=== PATIENT | female | born 1950 | race Caucasian/White ===

== ENCOUNTER → 2017-12-29 | Outpatient (CLI) | payer OTHER ==
[~2017-12-29] MED LIST: ACETAMINOPHEN650 M5 PO; ARTIFICIAL TEAR15 M3 OPHTHALMIC; ASPIR-LOW81 MG PO; ASPIRIN EC81 M1 PO; BISOPROLOL FUMA10 MG PO; BLACK COHOSH PO; BLACK COHOSH40 MG PO; CALCIUM 500 +1 EAC5 PO; CALCIUM 600 +1 EAC9 PO; CARDIZEM CD240 MG PO; CARDIZEM CD360 MG PO; CARDIZEM120 MG PO; ELIQUIS5 MG PO; IRON18 M1 PO; IRON325 PO; MELOXICAM15 MG PO; MUCINEX600 MG PO; NORCO 5-325 TA1 EACH PO; OMEPRAZOLE 20 M20 M1 PO; POTASSIUM20 PO; PRADAXA150 MG PO; RYTHMOL 150MG150 M1 PO; SERTRALINE HCL100 MG PO; TRIAMTERENE/HCT1 CA1 PO; TYLENOL325 MG PO; VITAMIN C + RO500 MG PO; VITAMIN C500 M1 PO; VITAMIN D2000 UNIT PO; ZINC CHELATE50 MG PO; ZINC50 M1 PO; [UNRECOGNIZED DRUG - OTHER] PO
--- NOTE | ~2017-12-29 | SLE ---
[facility] [place] [address] POLYSOMNOGRAPHY STUDY Name: GIDEON CARRIZALES Dhruv Room #: [facility]#: [id number] Admission: 12/29/17 Attend Phys: Jamie Zurita MD Discharge: Date of : 54 Report #: [id number] THIS REPORT FOR: //name// CC: Jamie Jenkins DATE OF SERVICE: 12/29/2017 ATTENDING PHYSICIAN: Dr. Henok Jenkins. The patient is 67 years old who weighs 169 pounds and is 70 inches tall with a BMI of 24.2. The patient has a history of moderate ALEXA, based on previous sleep study with an AHI of 19 per hour. The patient was initially placed on auto CPAP at a pressure of 7-10 which later was increased to 7-20. The patient had an outpatient nocturnal oximetry study while on auto CPAP and was found to have nocturnal hypoxia. As a result, another CPAP titration study was requested by primary care physician to assess the need for oxygen while sleeping on therapeutic CPAP. During the night of study, the patient spent 491 minutes in bed and slept for 399 minutes with a sleep efficiency of 81%. Sleep latency was 32.5 minutes with a REM latency of 311 minutes. Overall, sleep architecture showed increased stage I and stage 2 sleep, absent N3 sleep and reduced REM sleep which was 14.9% of the total sleep time. During the night of study, the patient's EKG monitoring revealed an average heart rate of 60 beats per minute with a maximum of 73 beats per minute. It was regular rhythm consistent with a sinus rhythm. No sustained arrhythmias were observed. PLMS were seen at an index of 9 per hour and 4 per hour caused EEG arousals. The patient was started on CPAP at a pressure of 7 cm water and titrated up to a maximum of 16 cm of water. At lower pressures, the patient's AHI was less than 5 per hour, however, REM and supine sleep together was not seen. At the final pressure of 16 cm water, the patient slept for 6.2 minutes. Supine sleep was observed with a brief REM sleep for 2.7 minutes were seen. The patient's AHI was reduced to 0 per hour and oxygen saturation remained above 96%. Due to limited sleep time at the final pressure, it is difficult to assess the efficacy of this pressure and I would recommend that the patient should be placed on an auto-CPAP at a minimum pressure of 10 cm water and a maximum pressure of 20 cm water. IMPRESSION: [facility] [address] [place] [address] POLYSOMNOGRAPHY STUDY Name: GIDEON CARRIZALES Room #: [facility]#: [id number] Admission: 12/29/17 Attend Phys: Jamie Zurita MD Discharge: Date of : 54 Report #: [id number] 1. Sleep apnea diagnosed by previous sleep study. 2. Mild PLMS, which does not need to be treated unless the patient has symptoms of restless legs during the day. RECOMMENDATIONS: 1. The patient should be placed on auto CPAP at a minimum pressure of 10 cm water and the maximum pressure of 20 cm water. The patient did not require supplemental oxygen. 2. The patient should be followed up in 4-6 weeks to assess compliance with CPAP and to document clinical improvement. 3. Avoid [employer] depressants. 4. Cautioned regarding driving until symptoms of sleep apnea have resolved with above CPAP pressure. <ELECTRONICALLY SIGNED> By: Jamie Zurita MD 01/02/18 1417 [id number] Jamie Zurita MD /nt
== END ==
LOC: SLEEPLAB 09:49
DX: G47.33 Obstructive sleep apnea (adult) (pediatric) (principal); G47.34 Idiopathic sleep related nonobstructive alveolar hypoventilation; G47.61 Periodic limb movement disorder

== ENCOUNTER → 2018-07-26 | Outpatient (CLI) | payer OTHER | LOC: RAD 09:13 | DX: M15.1 Heberden's nodes (with arthropathy) (principal) ==